=== PATIENT | female | born 1950 ===

== ENCOUNTER 2016-11-19 15:25 | Outpatient (CLI) | payer MEDICARE ==
--- NOTE | 2016-11-19 15:59 | XRay Report ---
CHEST TWO VIEWS: 11/19/16 15:25:00 CLINICAL: Productive cough. COMPARISON: None FINDINGS: Normal heart and pulmonary vasculature.Mild aortic tortuosity. The lungs are normally expanded and clear.Spondylosis of the thoracic spine. IMPRESSION: No acute cardiopulmonary process.Degenerative change in spine.
== END 2016-11-19 15:26 | disposition home or self-care (01) ==
LOC: SPVIMAG 15:25
PROVIDERS: ATTEND Family Medicine
DX: R05 Cough (principal); M47.894 Other spondylosis, thoracic region
CPT/HCPCS: 71020